=== PATIENT | male | born 1990 | race Caucasian/White ===

== ENCOUNTER → 2021-03-05 13:57 | Outpatient (CLI) | payer OTHER, SELFPAY ==
--- NOTE | ~2021-03-05 | XR_ITS ---
XR knee RT 2V DATE: 03/05/2021 14:14 INDICATION: Right knee pain TECHNIQUE: AP and lateral views COMPARISON: None FINDINGS: There is moderate suprapatellar knee joint effusion. No fracture or dislocation, radiopaque intra-articular loose body or chondrocalcinosis is detected. N o periosteal reaction or bone destruction. IMPRESSION: Joint effusion Reviewed, dictated and finalized at location A. IMPRESSION: Joint effusion
--- NOTE | ~2021-03-05 | XR_ITS ---
XR lumbar spine 2-3V DATE: 03/05/2021 14:14 INDICATION: Low back pain TECHNIQUE: AP, lateral, coned lateral lumbosacral views COMPARISON: None FINDINGS: Normal alignment of the lumbar spine. No fracture or bone destruction is evident. The inclu ded lower thoracic and lumbar pedicles are intact. Mild degenerative disease at L4-5. The sacroiliac joints are intact. IMPRESSION: Mild degenerative change Reviewed, dictated and finalized at location A. IMPRESSION: Mild degenerative change
== END ==
PROVIDERS: PCP Family Medicine; Visit Provider Physician Assistant Medical
DX: M51.36 Other intervertebral disc degeneration, lumbar region (principal); M25.461 Effusion, right knee
CPT/HCPCS: 72100; 73560

== ENCOUNTER 2023-05-07 09:55 | Outpatient (CLI) | payer BC, SELFPAY ==
--- NOTE | ~2023-05-07 | CT_ITS ---
CT of the Abdomen and Pelvis: Indication: Inguinal hernia Technique: 2.5 mm axial scans were obtained through the abdomen and pelvis following intravenous adm inistration of 100 cc of Omnipaque 350. Dose reduction technique was used on this scan by utilizing a utomated exposure control and iterative reconstruction technique. The dose-length product (DLP) was 1 110.35 mGy-cm. Findings: Scans through the lung bases are unremarkable. The liver, spleen, pancreas, gallbladder, adrenals and right kidney are within normal limits. Punctat e nonobstructing left renal stone noted. No evidence of aortic aneurysm. No lymphadenopathy. No bowel obstruction or bowel wall thickening. There is no evidence to suggest acute appendicitis. Images through the pelvis were performed. Urinary bladder unremarkable. Fat-containing left inguinal hernia present. No pelvic mass evident otherwise. No ascites. Impression: Small fat-containing left inguinal hernia. Punctate nonobstructing left renal stone. Reviewed, dictated and finalized at [facility]. DIRECTOR Impression: Small fat-containing left inguinal hernia. Punctate nonobstructing left renal stone.
== END 2023-05-07 09:56 | disposition home or self-care (01) ==
LOC: ANHIMG 09:56
PROVIDERS: PCP Family Medicine; Visit Provider Nurse Practitioner Family
DX: K40.90 Unilateral inguinal hernia, without obstruction or gangrene, not specified as recurrent (principal); N20.0 Calculus of kidney
CPT/HCPCS: 74177; Q9967

== ENCOUNTER 2024-03-15 01:13 | Day surgery (SDC) | payer OTHER, SELFPAY ==
--- NOTE | 2024-03-08 12:51 | PC.NURSE ---
Report to the Outpatient Waiting Room, entrance under the green pavilion located off [facility], at time _0600_ on date _[id number]_. Planned Procedure Time: _0730_.? Time changes happen often and if your time is changed the preop area will call you the afternoon before. - You and your visitor will be asked to self-screen and do not enter if you have any COVID symptoms. Please call surgeon if you need to reschedule. - A mask is optional within the hospital at this time. Patients may have clear liquids (water, carbonated beverages, clear teas, apple juice) until 3 hours prior to surgery with a maximum of 20 ounces. - No food from midnight until time of surgery and no smoking Take only the following medications with a SIP of water on the morning of surgery: ___None DO NOT STOP ANY OF YOUR OTHER PRESCRIPTION MEDICATIONS PRIOR TO SURGERY EXCEPT THE FOLLOWING Medications to discontinue per physician __CoQ10 Date to take last tksm___[id number]___Fmzsq with Dr Gomes's office if need to stop Meloxicam. Please no make-up, nail irish, hairspray, perfume, deodorant, or body powder the day of surgery.? No jewelry (including any body piercings) or valuables the day of surgery, leave them at home.? Please take a shower or bath the night before, or the morning of, surgery with an antibacterial soap.? Wear comfortable, loose fitting clothing.? - Jewelry must be removed prior to entering the operating room.? Rings and piercings that are not removed may be cut off. - The hospital will not accept responsibility for valuables.? - Please leave all valuables, including medications, at home the day of surgery. If you are going home after surgery, a licensed dinkey driver must drive you home.? - NO public transportation without another adult if you receive anesthesia. - We recommend that an adult stay with you for 24 hours following discharge. - We also recommend that you do not drive, make important decision, drink alcoholic beverages, or take any drugs that were not prescribed by your health care provider for at least 24 hours after your discharge time. Follow any additional instructions given to you from your surgeon. Telephone instructions given to __Ian__and asked if any additional questions and then verbalized understanding. Patient advised to call surgeon office or pre surgery nurse liaison [phone] if any additional questions.
[2024-03-15] VITALS (9 sets, daily range): BP systolic 121–149; BP diastolic 82–100; PULSE 59–105; RESP 12–18; TEMP 36.4; O2SAT 97–100; BMI 30.1
--- NOTE | 2024-03-15 06:34 | WPDANESEPPF ---
Anes - Initial Pre Proc Eval Procedure: Operation Date: 03/15/24 07:30 Proposed Procedures p Robotic Assisted Left Inguinal Hernia Repair with Mesh - Ingrid Gomes MD Date/Time: 03/15/24 06:34 Surgeon: Ingrid Gomes MD Pre Op Diagnosis: Lt Ing Hernia Patient Data Age: 33 Gender: M Height: 1.91 m Weight: 109.4 kg Last Vital Signs Temp 36.4 C 03/15/24 06:20 Pulse 69 03/15/24 06:20 Resp 18 03/15/24 06:20 BP 128/86 03/15/24 06:20 Pulse Ox 99 03/15/24 06:20 O2 Del Method Room Air 03/15/24 06:20 Allergies Allergy/AdvReac Type Severity Reaction Status Date / Time No Known Allergies Allergy Verified 03/15/24 06:27 Home Medications Medication Instructions Recorded Confirmed Type meloxicam 15 mg tablet 15 mg PO DAILY #30 tabs 06/26/22 03/08/24 Rx lovastatin 10 mg tablet 10 mg PO DAILY #90 tabs 08/02/22 03/15/24 Rx Patient hx anesthesia problems: none Family hx anesthesia problems: none Results Review: All pre-operative results and documents have been reviewed as part of the pre-operative evaluation. FOR[facility], [facility] Past Medical History Medical History (Updated 03/14/24 @ 10:27 by Cecilio Donahue DO) BMI 31.0-31.9,adult BMI greater than 30 BMI greater than 30 COVID Family history of factor V Leiden mutation Hyperlipidemia Hypertriglyceridemia Surgical History Surgical History History of hernia repair History of oral surgery Family History Family History Other Diabetes mellitus Hypertension Social History Social History Years smoked: 3 Smoking status: Former smoker Tobacco type: cigarettes Smoking end date: 03/08/18 Additional smoking assessment comments: says only smoked 5 cigarettes a week. 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 Gender identity (if verbalized by the patient): Male Sexual Orientation (if Verbalized by the Patient): Straight or Heterosexual Spiritual care concerns: No Agree to blood products: Yes Anes - Eval Final PreProcedure Day of Procedure 03/15/24 06:34 Patient weight: obese Heart: regular rate and rhythm Lungs: clear to auscultation Airway: Mallampati scale class II Neurological: alert and oriented Last oral intake: >/= 8 hours ASA classification: II Emergent: no Anesthetic plan: proceed Anesthesia type and monitoring: general ETT and standard monitoring Results Review: All pre-operative results and documents have been reviewed as part of the pre-operative evaluation. Informed Consent: The patient's anesthetic plan and its attendant risks and benefits were discussed with the patient/family/POA. Questions were solicited and answers provided to the satisfaction of the patient/family/POA.
[2024-03-15] MEDS: LACTATED RINGERS 1,000 ML 30 ML IV CONT ×2 (06:45→08:57)
[2024-03-15] MEDS: ACETAMINOPHEN 500 MG TABLET 1000 MG PO (06:45)
[2024-03-15] MEDS: KETOROLAC 15 MG/ML VIAL (*BKC) IV PUSH (06:45)
--- NOTE | 2024-03-15 07:18 | PM.IMHP ---
H&P: HPI History of Present Illness Date/Time: 03/15/24 07:18 Chief Complaint: Left inguinal hernia Narrative: Leonid is a 33 y/o male who presents with left groin pain at the request of KAMILLA Ardon. His symptoms started about 2 years ago. He started a bowling league and starts to feel discomfort after a few games. He is having regular BM?s without difficulty. CT abdomen pelvis w con on 05/07/23 which showed a small left inguinal hernia. Review of Systems Review of Systems: All systems reviewed & are unremarkable except as noted in HPI and below PMFSH Past Medical History Medical History BMI 31.0-31.9,adult BMI greater than 30 BMI greater than 30 COVID Family history of factor V Leiden mutation Hyperlipidemia Hypertriglyceridemia Surgical History Surgical History History of hernia repair History of oral surgery Family History Family History Other Diabetes mellitus Hypertension Social History Social History Years smoked: 3 Smoking status: Former smoker Tobacco type: cigarettes Smoking end date: 03/08/18 Additional smoking assessment comments: says only smoked 5 cigarettes a week. 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 Gender identity (if verbalized by the patient): Male Sexual Orientation (if Verbalized by the Patient): Straight or Heterosexual Spiritual care concerns: No Agree to blood products: Yes Meds Home Medications and Allergies Home Medications Medication Instructions Recorded Confirmed Type meloxicam 15 mg tablet 15 mg PO DAILY #30 tabs 06/26/22 03/08/24 Rx lovastatin 10 mg tablet 10 mg PO DAILY #90 tabs 08/02/22 03/15/24 Rx Allergies Allergy/AdvReac Type Severity Reaction Status Date / Time No Known Allergies Allergy Verified 03/15/24 06:27 Vital Signs Vital Signs - 24 hr 03/15/24 06:20 Temperature 36.4 C Pulse Rate 69 Respiratory Rate 18 Blood Pressure 128/86 Pulse Oximetry 99 Oxygen Delivery Room Air Exam Const: General: cooperative, comfortable and no acute distress Resp: Auscultation: clear to auscultation bilaterally Cardio: Rate: regular rate Rhythm: regular rhythm GI: Inspection: normal to inspection, non-distended and visible herniation GI Palp: No abdominal tenderness, Yes Soft to palpation, No Tenderness to palpation present (GI) and Yes Hernia present Other: reducible moderate-sized left inguinal hernia Assessment and Plan Assessment and plan (1) Left inguinal hernia: Code(s): K40.90 - Unilateral inguinal hernia, without obstruction or gangrene, not specified as recurrent Status: Acute Assessment and Plan: will set up for robotic assisted repair with mesh
--- NOTE | 2024-03-15 07:20 | WPDHPUPDATE1 ---
History and Physical Update Update Date/Time: 03/15/24 07:20 History and Physical has been reviewed, including an updated exam of the patient. There are NO changes in the patient's condition. Risks, benefits, and alternatives have been discussed and questions answered. Patient agrees to proceed with procedure.
[2024-03-15] MEDS: ceFAZolin 2 GM/D5W 50 ML 2 GM/50 ML BAG IVPB (07:30)
[2024-03-15] MEDS: BUPIVACAINE/EPINEPHRINE 0.5% 50 ML VIAL 30 ML INFILTRATE (08:25)
--- NOTE | 2024-03-15 08:51 | W.PM.PROC2 ---
Procedure Note - Detailed Date of Procedure 03/15/24 Pre-op Diagnosis left inguinal hernia Post-op Diagnosis Other ( incarcerated left inguinal hernia) Procedure Performed robotic assisted repair incarcerated left inguinal hernia with mesh Surgeon Ingrid Gomes MD Anesthesia General and Local Indications 33 year male presenting with a large sized left inguinal hernia over last 2 years Findings incarcerated left inguinal hernia with sigmoid colon and omentum Description of Procedure Patient was brought into the operating room and placed in the supine position. After adequate induction of general anesthesia, the patient was prepped and draped in normal sterile fashion. A time-out was then done to verify the patient's identity, as well as the procedure being performed. I began by making a 8 mm incision in the supraumbilical region, a Veress needle was then placed into the peritoneal cavity. CO2 gas was then insufflated and after adequate pneumoperitoneum was achieved, the Veress needle was removed. I then placed an 8 mm trocar through this incision. I then placed the endoscope through this trocar site and under direct visualization placed 2 further 8 mm ports in the right and left mid abdomen. The [employer] robot was then docked to the 3 trocar sites. I then scrubbed out and went to the robotic console. Upon examining the pelvis, it was noted that the patient had a large left inguinal hernia with noted incarcerated sigmoid colon and omentum. The right side was examined and no hernia defect was noted. Using gentle traction, I was able to reduce the sigmoid colon and omentum. After reduction, the contents were checked and noted to be viable and pathology free. I began by making a preperitoneal flap approximately 6 cm superior to the defect. This flap was carried medially past the umbilical ligaments and laterally to the transversalis. It then began dissection of my medial compartment taking this down to the pubic tubercle. I then began the lateral dissection taking this down to the transversalis fascia. Once these compartments were achieved, I began dissection around the cord structures. A large sized indirect hernia was noted at this point. Using careful dissection, was able to reduce indirect hernia sac off the cord structures. Once this was adequately done, I went ahead and placed a large piece of 3D Max mesh into the abdominal cavity. The mesh was carefully positioned, centering the center of the mesh over the indirect defect. Once this was done, was very satisfied with our repair. Using 3-0 Vicryl sutures, I tacked the mesh medially to Jairo's ligament. Two lateral sutures were placed from the mesh to the transversalis fascia. I then closed the peritoneal flap with a running 2.0 V Lock suture. The abdomen was then desufflated, and all ports were removed. All incisions were then closed with the 4.0 monocryl suture. Dermabond was placed on each wound. The patient tolerated the procedure well, was extubated in the operating room postoperatively, and will now be transferred to the recovery room in stable condition. Implants large 3DMax mesh Estimated Blood Loss 10 Drains No Packing No Pathology None sent Complications No immediate complications Condition Stable Disposition PACU [facility] Billing Surgery - Charge Forward: Surgery Billing
[2024-03-15] MEDS: oxyCODONE HCL (*CRX) 5 MG TAB IR PO (10:34)
== END 2024-03-15 11:04 | disposition home or self-care (01) ==
PROVIDERS: PCP Family Medicine; Visit Provider Surgery
PROC: 8E0Y4CZ Robotic Assisted Procedure of Lower Extremity, Percutaneous Endoscopic Approach (ICD-10-PCS; CPT 49650; principal; 2024-03-15 07:30)
DX: K40.30 Unilateral inguinal hernia, with obstruction, without gangrene, not specified as recurrent (principal); E78.5 Hyperlipidemia, unspecified; Z87.891 Personal history of nicotine dependence; F12.90 Cannabis use, unspecified, uncomplicated; E66.9 Obesity, unspecified; Z68.30 Body mass index [BMI] 30.0-30.9, adult
CPT/HCPCS: 49650; S2900; A9270; C1781; J0690; J1100; J1171; J1885; J2003; J2250; J2405; J2704; J3010; J7030; J7120